=== PATIENT | female | born 1985 | race Caucasian/White ===

== ENCOUNTER → 2019-07-26 12:38 | Outpatient (BNVA) | payer MEDICAID, SELFPAY | PROVIDERS: Visit Provider Emergency Medicine | DX: J30.2 Other seasonal allergic rhinitis (principal); H69.80 Other specified disorders of Eustachian tube, unspecified ear; J02.9 Acute pharyngitis, unspecified | CPT/HCPCS: 87880 ==

== ENCOUNTER → 2020-02-09 14:17 | Outpatient (BNVA) | payer MEDICAID, SELFPAY | PROVIDERS: Visit Provider Nurse Practitioner Family | DX: R39.9 Unspecified symptoms and signs involving the genitourinary system (principal); N39.0 Urinary tract infection, site not specified; J30.2 Other seasonal allergic rhinitis; H69.80 Other specified disorders of Eustachian tube, unspecified ear; Z32.00 Encounter for pregnancy test, result unknown | CPT/HCPCS: 81000; 81025; 87086 ==

== ENCOUNTER → 2020-02-22 11:53 | Outpatient (BNVA) | payer MEDICAID, SELFPAY | PROVIDERS: Visit Provider Nurse Practitioner Family | DX: R39.9 Unspecified symptoms and signs involving the genitourinary system (principal); R10.9 Unspecified abdominal pain; R10.11 Right upper quadrant pain | CPT/HCPCS: 81000 ==

== ENCOUNTER 2020-03-22 10:18 | Outpatient (CLI) | payer MEDICAID, SELFPAY ==
--- NOTE | 2020-03-22 10:15 | US_ITS ---
WS: [id number] Complete ABDOMINAL ULTRASOUND HISTORY: R10.9 - Unspecified abdominal pain COMPARISON: None available. Liver: 16.1 cm in length. Liver is normal size and echogenicity with no mass or intrahepatic dilatati on. Gallbladder: Normally distended with no gallstones, wall thickening or pericholecystic fluid. Gallbladder wall thickness: 0.2 cm. Pancreas: Normal size and echogenicity. CBD: 0.3 cm. Right kidney: 10.5 cm x 3.7 cm x 4.6 cm. No mass, cortical thickening or hydronephrosis. Echogenic f ocus lower pole may be a small angiomyolipoma or cortical calcification. Nonspecific. Left kidney: 10.7 cm x 5.2 cm x 4.3 cm. No mass, cortical thickening or hydronephrosis. Spleen: Normal size and echogenicity. Abdominal aorta and IVC are within normal limits. No ascites. US/US abdomen complete* [id number] IMPRESSION: Normal complete abdomen ultrasound.
== END 2020-03-22 10:19 | disposition home or self-care (01) ==
PROVIDERS: PCP Nurse Practitioner Family; Visit Provider Nurse Practitioner Family
DX: R10.9 Unspecified abdominal pain (principal)
CPT/HCPCS: 76700

== ENCOUNTER 2021-11-10 20:43 | Emergency (ER) | payer MEDICAID, SELFPAY ==
[2021-11-10 20:50] VITALS: BP 145/88; PULSE 99; RESP 18; TEMP 36.9; O2SAT 98; BMI 23.8
--- NOTE | 2021-11-10 20:51 | XRR_ITS ---
PROCEDURE INFORMATION: Exam: XR Chest Exam date and time: 11/10/2021 9:41 PM Age: 36 years old Clinical indication: Dyspnea and shortness of breath; Patient HX: C/O worsening SOB and dyspnea for last few days. TECHNIQUE: Imaging protocol: Radiologic exam of the chest. Views: 1 view. COMPARISON: No relevant prior studies available. FINDINGS: Lungs: No consolidation. Pleural spaces: Unremarkable. No pleural effusion. No pneumothorax. Heart/Mediastinum: No cardiomegaly. Bones/joints: No acute findings. XR/XR chest 1V portable [id number] IMPRESSION: No acute findings.
--- NOTE | 2021-11-10 20:51 | ECG_ITS ---
[facility] Test Date: 2021-11-10 Pat Name: Jaylyn Reyes Department: Room: Gender: Female Dock Coordinator: : 1985 Requested By: Mookie Silvestre Order Number: [id number] Mcmanus MD: Maryan Aj M.D. Measurements Intervals [place] Rate: 73 P: 74 AL: 144 QRS: 69 QRSD: 93 T: 62 QT: 372 QTc: 412 Interpretive Statements SINUS RHYTHM No previous ECG available for comparison Electronically Signed On 11-11-2021 11:06:02 CDT by Maryan Aj M.D. [id number]
--- NOTE | 2021-11-10 21:10 | ED_ITS ---
HPI - SOB/Dyspnea General: Chief Complaint: Shortness of Breath/Dyspnea Stated Complaint: sob, pain in mid back/ribs Time Seen by Provider: 11/10/21 20:50 History of Present Illness: HPI Narrative: 36-year-old female comes in today for complaints of shortness of breath. On exam patient makes exasperated respirations with speech. Patient appears nontoxic. Patient appears in no pain. Patient does report some chest discomfort. Patient had been placed on some propanolol about 10 days ago which states that the symptoms started after the start of the medication. Associated symptoms: Reports chest pain; Deny fever(s) Review of Systems General: Reports: 10 or more systems reviewed and unremarkable except in HPI and below Const: Denies: fever(s) Card: Reports: chest pain Resp: Reports: dyspnea Skin/Breast: Denies: rash PFS ED PFSH: Medical History (Updated 11/10/21 @ 22:41 by MARICRUZ PeraltaP) Eustachian tube dysfunction Psychiatric care Seasonal allergies Social History (Reviewed 02/22/20 @ 11:53 by Jody Bingham [facility]) Smoking and tobacco status: former smoker Alcohol intake: former Female Reproductive History: Date of last menstrual period: 10/29/21 Spontaneous abortions: No Physical Exam Const: COMMON NORMALS: alert HENMT: COMMON NORMALS: normocephalic HEAD & SCALP: normocephalic Neck/C-Spine: COMMON NORMALS: full ROM Resp: COMMON NORMALS: normal respiratory effort and clear to auscultation bilaterally AUSCULTATION: clear to auscultation bilaterally Cardio: COMMON NORMALS: regular rate and regular rhythm RATE: regular rate RHYTHM: regular rhythm GI: COMMON NORMALS: Soft to palpation and non-tender PALPATION: Yes Soft to palpation Back/Pelvis: COMMON NORMALS: thoracic and lumbar spine normal to inspection Extremity: COMMON NORMALS: normal to inspection Neuro: SENSORIUM/ORIENTATION: Yes alert Skin: COMMON NORMALS: turgor normal GENERAL SKIN EXAM: turgor normal Course Vital Signs: Vital signs: Vital Signs Temperature 98.5 F 11/10/21 20:50 Pulse Rate 99 11/10/21 20:50 Respiratory Rate 18 11/10/21 20:50 Blood Pressure 145/88 11/10/21 20:50 Pulse Oximetry 98 11/10/21 20:50 Oxygen Delivery Me thod 11/10/21 20:50 MDM - SOB/Dyspnea Medical Decision Making 36-year-old female comes in today with complaints of shortness of breath. On exam patient appears nontoxic. Patient appears in no acute distress. Patient has occasional deep inspirations while speaking. On exam lungs are clear to auscultation. Skin is warm and dry. Vital signs are normal. Differential diagnosis includes anxiety, PE, pneumonia, electrolyte imbalance, anemia. CBC had a hemoglobin of 10.9, potassium was 3.1, troponin was less than 6, D-dimer was less than 0.27. I think the patient might have a little bit of shortness of breath due to her anemia. Patient also has some mild hypokalemia which may be causing some irregularity in her heart rate. Patient does not seem to have any serious illness at this time. Recommend follow-up with primary care in 1 week for recheck on patient's CBC and potassium. Discussed her medication use and which medicines may actually affect her potassium and absorption which includes her omeprazole 40 mg daily. Patient reported understanding of care plan need for follow-up or return to the ER. Lab Data : 11/10/21 21:45 11/10/21 21:45 Labs/Radiology: Laboratory Results WBC 11.1 10^3/uL (4.0-10.0) H 11/10/21 21:45 RBC 3.49 10^6/uL (4.1-5.3) L 11/10/21 21:45 Hgb 10.9 g/dL (11.5-15.3) L 11/10/21 21:45 Hct 31.7 % (37.0-47.0) L 11/10/21 21:45 MCV 90.8 fl (81-99) 11/10/21 21:45 MCH 31.2 pg (28.0-34.0) 11/10/21 21:45 MCHC 34.4 g/dL (30.0-36.0) 11/10/21 21:45 RDW 12.2 % (12.1-15.1) 11/10/21 21:45 Plt Count 307 10^3/cmm (130-400) 11/10/21 21:45 MPV 10.4 fL (7.4-10.4) 11/10/21 21:45 Neut % (Auto) 55.2 % 11/10/21 21:45 Lymph % (Auto) 38.6 % 11/10/21 21:45 [place] % (Auto) 4.6 % 11/10/21 21:45 Eos % (Auto) 0.7 % 11/10/21 21:45 Baso % (Auto) 0.6 % 11/10/21 21:45 Neut # (Auto) 6.14 10^3/uL (1.8-7.7) 11/10/21 21:45 Lymph # (Auto) 4.3 10^3/uL (0.8-4.8) 11/10/21 21:45 [place] # (Auto) 0.5 10^3/uL (0.2-0.9) 11/10/21 21:45 Eos # (Auto) 0.1 10^3/uL (0.0-0.8) 11/10/21 21:45 Baso # (Auto) 0.1 10^3/uL (0.0-0.1) 11/10/21 21:45 Nucleated RBC % (auto) 0 % 11/10/21 21:45 Nucleated RBCs # 0.0 /100WBC 11/10/21 21:45 D-Dimer <= 0.27 ug/mIFEU (0-0.59) 11/10/21 21:45 Sodium 137 mmol/L (136-145) 11/10/21 21:45 Potassium 3.1 mmol/L (3.5-5.1) L 11/10/21 21:45 Chloride 106 mmol/L (98-107) 11/10/21 21:45 Carbon Dioxide 19 mmol/L (22-29) L 11/10/21 21:45 Anion Gap 15.1 (5-19) 11/10/21 21:45 BUN 9 mg/dL (6-20) 11/10/21 21:45 Creatinine 0.7 mg/dL (0.5-0.9) 11/10/21 21:45 GFR Calculation 95.2 mL/min (90-130) 11/10/21 21:45 Glucose 97 mg/dL (65-115) 11/10/21 21:45 Calculated Osmolality 283 mOsm/kg (285-295) L 11/10/21 21:45 Calcium 8.5 mg/dL (8.5-10.5) 11/10/21 21:45 Total Bilirubin 0.5 mg/dL (0.15-1.2) 11/10/21 21:45 AST 13 U/L (0-32) 11/10/21 21:45 ALT 11 U/L (0-33) 11/10/21 21:45 Alkaline Phosphatase 56 U/L (35-105) 11/10/21 21:45 Troponin T Gen 5 ng/L 6 ng/L (0-10) 11/10/21 21:45 Total Protein 6.7 g/dL (6.6-8.7) 11/10/21 21:45 Albumin 3.8 g/dL (3.5-5.2) 11/10/21 21:45 Globulin 2.9 g/dL (1.3-4.6) 11/10/21 21:45 Discharge Plan Discharge Patient Disposition: Home Clinical Impression: Dyspnea on exertion, Hypokalemia Anemia Qualifiers: Anemia type: unspecified type Qualified Code(s): D64.9 - Anemia, unspecified Condition: Stable Prescriptions: No Action norgestimate-ethinyl estradiol [Sprintec (28)] 0.25-35 mg-mcg tablet 1 tab PO DAILY omeprazole 20 mg capsule,delayed release(DR/EC) 40 mg PO DAILY Acidophilus Probiotic Complex 250 million cell capsule PO DAILY venlafaxine 75 mg capsule,extended release 24hr 75 mg PO DAILY oxybutynin chloride 15 mg tablet extended release 24hr 15 mg PO DAILY hydroxyzine HCl 10 mg tablet 10 mg PO BID PRN (Reason: anxiety or sleep) Qty: 60 3RF Discharge Orders: Discharge ED (Routine); Ordered 11/10/21 Ordered By: Mookie Segura Discharge Diet: Usual diet Discharge Activity: Increase activity as tolerated Patient Instructions: Potassium Content of Foods List (ED), Iron Rich Diet (ED) Activity Restrictions/Additional Instructions: Healthy diet and activity. Drink plenty of water. Continue with routine medications. Follow-up with primary care for further instruction. Return to ER for new concerns. Coding Level of Care Code ED Foundation Stage Teacher for Brunilda Fwd Exam Comprehensive
[2021-11-10] MEDS: LORazepam 0.5 mg Tablet PO (21:42)
[2021-11-10 21:54] LABS: Basophils # 0.1 10^3/uL (0.0-0.1); Basophils % 0.6 %; Eosinophils # 0.1 10^3/uL (0.0-0.8); Eosinophils % 0.7 %; Hematocrit 31.7 % (37.0-47.0); Hemoglobin 10.9 g/dL (11.5-15.3); Lymphocytes # 4.3 10^3/uL (0.8-4.8); Lymphocytes % 38.6 %; Mean Corpuscular HGB Conc 34.4 g/dL (30.0-36.0); Mean Corpuscular Hemoglobin 31.2 pg (28.0-34.0); Mean Corpuscular Volume 90.8 fl (81-99); Mean Platelet Volume 10.4 fL (7.4-10.4); Monocytes # 0.5 10^3/uL (0.2-0.9); Monocytes % 4.6 %; Neutrophils # 6.14 10^3/uL (1.8-7.7); Neutrophils % 55.2 %; Nucleated Red Blood Cells % 0 %; Platelet Count 307 10^3/cmm (130-400); Red Blood Count 3.49 10^6/uL (4.1-5.3); Red Cell Distribution Width 12.2 % (12.1-15.1); White Blood Count 11.1 10^3/uL (4.0-10.0)
[2021-11-10 22:07] LABS: D Dimer <= 0.27 ug/mIFEU (0-0.59)
[2021-11-10 22:15] LABS: Alanine Aminotransferase 11 U/L (0-33); Albumin Level 3.8 g/dL (3.5-5.2); Alkaline Phosphatase 56 U/L (35-105); Anion Gap 15.1 (5-19); Aspartate Amino Transferase 13 U/L (0-32); Blood Urea Nitrogen 9 mg/dL (6-20); Calcium 8.5 mg/dL (8.5-10.5); Carbon Dioxide 19 mmol/L (22-29); Chloride 106 mmol/L (98-107); Globulin 2.9 g/dL (1.3-4.6); Glomerular Filtration Rate 95.2 mL/min (90-130); Glucose 97 mg/dL (65-115); Osmolality Calculated 283 mOsm/kg (285-295); Potassium 3.1 mmol/L (3.5-5.1); Sodium 137 mmol/L (136-145); Total Bilirubin 0.5 mg/dL (0.15-1.2); Total Protein 6.7 g/dL (6.6-8.7); Troponin T (5th) Once 6 ng/L (0-10)
[2021-11-10] MEDS: potassium chloride ER 20 mEq Tablet 40 MEQ PO (22:40)
[2021-11-10 23:12] VITALS: BP 141/82; PULSE 72; RESP 19; TEMP 37.1; O2SAT 98
== END 2021-11-10 23:14 | disposition home or self-care (01) ==
PROVIDERS: Emergency Provider Nurse Practitioner Family
DX: R06.00 Dyspnea, unspecified (principal); E87.6 Hypokalemia; D64.9 Anemia, unspecified; Z87.891 Personal history of nicotine dependence
CPT/HCPCS: 71045; 80053; 84484; 85025; 85378; 93005; 99285

== ENCOUNTER → 2022-04-23 17:14 | Outpatient (BNVA) | payer MEDICAID, SELFPAY | PROVIDERS: Visit Provider Psychiatry & Neurology Psychiatry | DX: Z79.899 Other long term (current) drug therapy (principal) | CPT/HCPCS: 80053; 80061; 83036; 84443; 85025 ==

== ENCOUNTER → 2022-10-19 10:30 | Outpatient (BNVA) | payer MEDICAID, SELFPAY | PROVIDERS: Visit Provider Emergency Medicine | DX: J02.9 Acute pharyngitis, unspecified (principal) | CPT/HCPCS: 87071; 87880 ==

== ENCOUNTER 2024-06-05 17:31 | Inpatient (IN) | payer SELFPAY ==
[2024-06-05 17:36] VITALS: BP 112/73; PULSE 106; RESP 16; TEMP 36.8; O2SAT 99; BMI 21.6
--- NOTE | 2024-06-05 17:40 | ECG_ITS ---
[facility] Test Date: 2024-06-05 Pat Name: Jaylyn Lo Department: Room: Gender: Female Loader: : 1985 Requested By: Marly Jane Order Number: [id number] Yonathan MD: Sonya Dozier M.D. Measurements Intervals [place] Rate: 131 P: 78 CT: 116 QRS: 78 QRSD: 82 T: 40 QT: 333 QTc: 493 Interpretive Statements SINUS TACHYCARDIA NONSPECIFIC ST & T-WAVE ABNORMALITY ABNORMAL RHYTHM ECG Compared to ECG 11/10/2021 21:12:32 Sinus tachycardia is now present Electronically Signed On 06-06-2024 13:13:08 CDT by Sonya Dozier M.D. [email or web address] [id number]
[2024-06-05 18:58] LABS: Basophils % 0.1 %; Lymphocytes # 1.1 10^3/uL (0.8-4.8); Lymphocytes % 8.1 %; Mean Corpuscular Hemoglobin 31.7 pg (27-33); Mean Corpuscular Volume 96.1 fl (85-98); Mean Platelet Volume 10.3 fL (7.4-10.4); Monocytes # 0.6 10^3/uL (0.2-0.9); Monocytes % 4.5 %; Neutrophils # 11.79 10^3/uL (1.8-7.7); Neutrophils % 86.6 %; Nucleated Red Blood Cells % 0 %; Platelet Count 376 10^3/cmm (157-399); Red Blood Count 4.89 10^6/uL (3.85-5.65); Red Cell Distribution Width 12.3 % (12.1-15.1); White Blood Count 13.62 10^3/uL (3.29-11.43)
[2024-06-05 19:16] LABS: Alanine Aminotransferase 12 U/L (0-33); Albumin Level 5.4 g/dL (3.5-5.2); Alkaline Phosphatase 110 U/L (35-105); Anion Gap 35.5 (5-19); Aspartate Amino Transferase 15 U/L (0-32); Blood Urea Nitrogen 29 mg/dL (6-20); Calcium 10.1 mg/dL (8.5-10.5); Carbon Dioxide 11 mmol/L (22-29); Chloride 100 mmol/L (98-107); Creatinine Clr Calc Pharmacy 52.0124; Globulin 3.9 g/dL (1.3-4.6); Glomerular Filtration Rate 50.3 mL/min (90-130); Glucose 125 mg/dL (65-115); Lipase 67 U/L (13-60); Osmolality Calculated 301 mOsm/kg (285-295); Potassium 4.5 mmol/L (3.5-5.1); Sodium 142 mmol/L (136-145); Total Bilirubin 0.5 mg/dL (0.15-1.2); Total Protein 9.3 g/dL (6.6-8.7)
--- NOTE | 2024-06-05 19:21 | CTR_ITS ---
PROCEDURE INFORMATION: Exam: CT Abdomen And Pelvis With Contrast Exam date and time: 06/05/2024 7:41 PM Age: 39 years old Clinical indication: Nausea and vomiting; Abdominal pain; Generalized; Prior surgery; Surgery date: 6+ months; Surgery type: Ovarian cystectomy; Diffuse abd pain with n/v x 2 days. TECHNIQUE: Imaging protocol: Computed tomography of the abdomen and pelvis with contrast. Radiation optimization: All CT scans at this facility use at least one of these dose optimization techniques: automated exposure control; mA and/or kV adjustment per patient size (includes targeted exams where dose is matched to clinical indication); or iterative reconstruction. Contrast material: OMNI 350; Contrast volume: 80 ml; Contrast route: INTRAVENOUS (IV); COMPARISON: US abdomen complete* [id number] 03/22/2020 10:20 AM RADIATION DOSE METRICS: Total DLP (mGy-cm): 309.41 FINDINGS: Lungs: Visualized lung bases are clear. Liver: Unremarkable. Gallbladder and biliary ducts: No radiopaque stones. No significant biliary ductal dilatation. Pancreas: Unremarkable. Spleen: Unremarkable. Adrenal glands: Unremarkable. Kidneys and ureters: There is a 2 mm stone in the left kidney. No significant hydronephrosis. No right-sided renal or ureteral calculi are detected. Stomach and bowel: There is a mildly prominent short segment 3.5 cm length small bowel loop in the central abdomen with an air-fluid level measuring 2.3 cm in caliber. The small bowel proximal and distal to this region is decompressed. This is likely transient or could represent focal ileus. Remaining small and large bowel loops are unremarkable. Appendix: The appendix is normal in caliber. No evidence of acute appendicitis. Intraperitoneal space: No significant free fluid. No free air. Vasculature: The abdominal aorta is normal in caliber. No abdominal aortic aneurysm. Lymph nodes: Unremarkable. No enlarged lymph nodes. Urinary bladder: Unremarkable as visualized. Reproductive: There is a 2 cm area of mild hyperdensity in the posterior wall of the lower uterine segment, incompletely evaluated on this study. This could be related to a fibroid. Ovaries are unremarkable. Bones/joints: Intact. No acute fracture. Soft tissues: Unremarkable. CT/CT abdomen pelvis w con* [id number] IMPRESSION: 1. Tiny 2 mm nonobstructing left renal stone. 2. Short segment mildly prominent fluid-filled small bowel loop in the central abdomen which may be transient or could represent mild focal ileus. Remaining small and large bowel loops are normal in caliber and unremarkable. 3. No evidence for acute appendicitis.
[2024-06-05 19:38] LABS: Bilirubin Urine Negative (Negative); Blood Urine 1+ (Negative); Glucose Urine UA Negative (Normal); Ketones Urine 3+ (Negative); Leukocyte Esterase Urine Negative (Negative); Nitrate Urine Negative (Negative); Protein Urine 3+ (Negative); Specific Gravity, Urine 1.023 (1.005-1.030); Urine Appearance Cloudy (CLEAR); Urine Color Yellow (Yellow); pH Urine 5.5 (5-7)
--- NOTE | 2024-06-05 19:38 | W.ED.NAVMDI ---
HPI - Nausea/Vomiting/Diarrhea General: Chief complaint: Nausea/Vomiting/Diarrhea Stated complaint: n/v couple days Time Seen by Provider: 06/05/24 18:00 History of Present Illness: 39-year-old female with a history of ADHD and seasonal allergies who presents the emergency room with abdominal pain, nausea and vomiting. This has been going on for about 36 hours now. Complains of pain from her umbilicus going up into her epigastric area. She has had some dizziness, migraine symptoms and palpitations. Also with kidney pain today . Related Data Home Medications ?Medication ?Instructions ?Recorded ?Confirmed norgestimate 0.25 mg-ethinyl 1 tab PO DAILY 02/09/20 10/19/22 estradiol 35 mcg tablet (Sprintec (28)) Lactobacill cap PO DAILY 10/30/21 10/19/22 acidophilus-L.helvetic-B.bifidum 250 million cell capsule (Acidophilus Probiotic Complex) multivitamin 1 tab PO DAILY 04/23/22 10/19/22 hydroxyzine HCl 25 mg tablet 25 mg PO DAILY 10/10/22 10/19/22 Previous Rx's ?Medication ?Instructions ?Recorded amoxicillin 500 mg tablet 500 mg PO BID 10 days #20 tabs 10/19/22 dexamethasone 4 mg tablet 8 mg (2 x 4 mg) PO DAILY 1 day #2 10/19/22 tabs Allergies Allergy/AdvReac Type Severity Reaction Status Date / Time No Known Allergies Allergy Verified 06/05/24 17:41 Review of Systems Narrative: Constitutional symptoms: Negative except as documented in HPI. Skin symptoms: Negative except as documented in HPI. Eye symptoms: Negative except as documented in HPI. ENMT symptoms: Negative except as documented in HPI. Respiratory symptoms: Negative except as documented in HPI. Cardiovascular symptoms: Negative except as documented in HPI. Gastrointestinal symptoms: Negative except as documented in HPI. Genitourinary symptoms: Negative except as documented in HPI. Musculoskeletal symptoms: Negative except as documented in HPI. Neurologic symptoms: Negative except as documented in HPI. Psychiatric symptoms: Negative except as documented in HPI. Endocrine symptoms: Negative except as documented in HPI. [facility] ED PFSH: Medical History (Updated 06/05/24 @ 20:39 by Marly Bustillo MD) ADHD Eustachian tube dysfunction Seasonal allergies Social History Smoking and tobacco/nicotine status: former use of tobacco/nicotine Alcohol intake: former Female Reproductive History: Spontaneous abortions: No Physical Exam Narrative: EXAM NARRATIVE: General: Alert, no acute distress. Skin: Warm, dry. Head: Normocephalic, atraumatic. Neck: Supple, trachea midline. Eye: Extraocular movements are intact. Ears, nose, mouth and throat: mucosa moist. Cardiovascular: Regular, Normal peripheral perfusion. Respiratory: Lungs are clear to auscultation, respirations are non-labored, breath sounds are equal, Symmetrical chest wall expansion. Gastrointestinal: Soft, epigastric and upper abdominal tenderness, Non distended Musculoskeletal: Normal ROM, no deformity. Neurological: Alert and oriented, No focal neurological deficit observed. Psychiatric: Cooperative, appropriate mood & affect. Course Vital Signs: Vital signs: Vital Signs Temperature 98.2 F 06/05/24 17:36 Pulse Rate 102 H 06/05/24 20:01 Respiratory Rate 16 06/05/24 17:36 Blood Pressure 128/84 06/05/24 20:01 Pulse Oximetry 95 06/05/24 20:01 Oxygen Delivery Me thod Room Air 06/05/24 20:01 MDM - Nausea/Vomiting/Diarrhea Medical Decision Making Medical decision making: Differential diagnosis for this patient with nausea and vomiting including but not limited to and based on the above HPI, review of systems and physical exam: Urinary tract infection. Appendicitis. Cholecystitis. Colitis. small bowel obstruction. crohn's flare. pancreatitis. gastritis. peptic ulcer. cyclic vomiting. Viral illness. Influenza. COVID. Orders placed to evaluate differential diagnosis based on the above differential, HPI and physical exam Lab Review: Laboratory results were reviewed and interpreted by myself the emergency room physician. Mild leukocytosis. No anemia. Mild renal insufficiency with a BUN/creatinine of 29 and 1.2. Her bicarb is quite low at 11. Negative for UTI. Serum ketones are positive. CT of the abdomen pelvis with contrast: Nonobstructing renal stone. Some mild fluid-filled small bowel loops that could be an early ileus or just transient. The rest of the bowel looks normal. No evidence for appendicitis. This was reviewed and interpreted by myself the emergency room physician. I also reviewed the radiology report. I reviewed the patient's medical record. Reexamination: Patient says she still feels somewhat nauseous. Still with some abdominal pain. Still feeling very weak. Still with a headache. She does not feel like she can go home. I agree that she has a bit of a metabolic acidosis and some acute renal insufficiency so admission for further fluids and antibiotics seems appropriate. Consultation: I spoke with Dr. Vallejo who agrees to admission. Assessment and plan: Gastroenteritis Dehydration Acute renal insufficiency Metabolic acidosis ?2 L normal saline bolus, IV Zofran, IV Dilaudid. Some relief but still quite nauseous. ?Migraine cocktail. IV Reglan Benadryl Norflex -I discussed the patient with the hospitalist on-call who is admitting the patient. - Discussed findings and plan with patient. Answered any questions. - All laboratory values were reviewed and interpreted personally by myself, the ER physician - All imaging was reviewed and interpreted personally by myself, the ER physician. - Evaluation and treatment of this problem were appropriate in the emergency setting Lab Data 06/05/24 18:48 06/05/24 18:48 Radiology Impressions Abdomen/Pelvis CT 06/05/24 19:21 IMPRESSION: 1. Tiny 2 mm nonobstructing left renal stone. 2. Short segment mildly prominent fluid-filled small bowel loop in the central abdomen which may be transient or could represent mild focal ileus. Remaining small and large bowel loops are normal in caliber and unremarkable. 3. No evidence for acute appendicitis. Laboratory Results WBC 13.62 10^3/uL (3.29-11.43) H 06/05/24 18:48 RBC 4.89 10^6/uL (3.85-5.65) 06/05/24 18:48 Hgb 15.50 g/dL (11.27-16.99) 06/05/24 18:48 Hct 47.0 % (36-47) 06/05/24 18:48 MCV 96.1 fl (85-98) 06/05/24 18:48 MCH 31.7 pg (27-33) 06/05/24 18:48 MCHC 33.0 g/dL (30-55) 06/05/24 18:48 RDW 12.3 % (12.1-15.1) 06/05/24 18:48 Plt Count 376 10^3/cmm (157-399) 06/05/24 18:48 MPV 10.3 fL (7.4-10.4) 06/05/24 18:48 Neut % (Auto) 86.6 % 06/05/24 18:48 Lymph % (Auto) 8.1 % 06/05/24 18:48 [place] % (Auto) 4.5 % 06/05/24 18:48 Eos % (Auto) 0.0 % 06/05/24 18:48 Baso % (Auto) 0.1 % 06/05/24 18:48 Neut # (Auto) 11.79 10^3/uL (1.8-7.7) H 06/05/24 18:48 Lymph # (Auto) 1.1 10^3/uL (0.8-4.8) 06/05/24 18:48 [place] # (Auto) 0.6 10^3/uL (0.2-0.9) 06/05/24 18:48 Eos # (Auto) 0.0 10^3/uL (0.0-0.8) 06/05/24 18:48 Baso # (Auto) 0.0 10^3/uL (0.0-0.1) 06/05/24 18:48 Nucleated RBC % (auto) 0 % 06/05/24 18:48 Nucleated RBCs # 0.0 /100WBC 06/05/24 18:48 Sodium 142 mmol/L (136-145) 06/05/24 18:48 Potassium 4.5 mmol/L (3.5-5.1) 06/05/24 18:48 Chloride 100 mmol/L (98-107) 06/05/24 18:48 Carbon Dioxide 11 mmol/L (22-29) L 06/05/24 18:48 Anion Gap 35.5 (5-19) H 06/05/24 18:48 BUN 29 mg/dL (6-20) H 06/05/24 18:48 Creatinine 1.2 mg/dL (0.5-0.9) H 06/05/24 18:48 GFR Calculation 50.3 mL/min (90-130) L 06/05/24 18:48 Glucose 125 mg/dL (65-115) H 06/05/24 18:48 Calculated Osmolality 301 mOsm/kg (285-295) H 06/05/24 18:48 Calcium 10.1 mg/dL (8.5-10.5) 06/05/24 18:48 Total Bilirubin 0.5 mg/dL (0.15-1.2) 06/05/24 18:48 AST 15 U/L (0-32) 06/05/24 18:48 ALT 12 U/L (0-33) 06/05/24 18:48 Alkaline Phosphatase 110 U/L (35-105) H 06/05/24 18:48 Total Protein 9.3 g/dL (6.6-8.7) H 06/05/24 18:48 Albumin 5.4 g/dL (3.5-5.2) H 06/05/24 18:48 Globulin 3.9 g/dL (1.3-4.6) 06/05/24 18:48 Lipase 67 U/L (13-60) H 06/05/24 18:48 HCG, Qual Negative (Negative) 06/05/24 18:48 Urine Color Yellow (Yellow) 06/05/24 18:45 Urine Appearance Cloudy (CLEAR) A 06/05/24 18:45 Urine pH 5.5 (5-7) 06/05/24 18:45 Ur Specific [place] 1.023 (1.005-1.030) 06/05/24 18:45 Urine Protein 3+ (Negative) A 06/05/24 18:45 Urine Glucose (UA) Negative (Normal) 06/05/24 18:45 Urine Ketones 3+ (Negative) H 06/05/24 18:45 Urine Blood 1+ (Negative) A 06/05/24 18:45 Urine Nitrate Negative (Negative) 06/05/24 18:45 Urine Bilirubin Negative (Negative) 06/05/24 18:45 Urine Urobilinogen 1.0 mg/dL (Negative) 06/05/24 18:45 Ur Leukocyte Esterase Negative (Negative) 06/05/24 18:45 Urine RBC 0-2 /hpf (0-2) 06/05/24 18:45 Urine WBC 21-50 /hpf (0-5) H 06/05/24 18:45 Ur Squamous Epith Cells 11-20 /hpf (0-5) H 06/05/24 18:45 Amorphous Sediment Not Reportable 06/05/24 18:45 Urine Bacteria None seen /hpf (NONE) 06/05/24 18:45 Hyaline Casts 44.25 /lpf 06/05/24 18:45 Urine Opiates Screen Negative ng/mL (Negative) 06/05/24 18:45 Ur Barbiturates Screen Negative ng/mL (Negative) 06/05/24 18:45 Ur Phencyclidine Scrn Negative ng/mL (Negative) 06/05/24 18:45 Ur Amphetamines Screen Negative ng/mL (Negative) 06/05/24 18:45 U Benzodiazepines Scrn Negative ng/mL (Negative) 06/05/24 18:45 Urine Cocaine Screen Negative ng/mL (Negative) 06/05/24 18:45 U Marijuana (THC) Screen Positive ng/mL (Negative) H 06/05/24 18:45 Serum Ketones Positive (Negative) H 06/05/24 18:48 All radiology interpretation(s) finalized by discharge Discharge Plan Discharge Patient Disposition: Placed in Observation Clinical Impression: Gastroenteritis, Dehydration Coding Level of Care Code ED Educational Technology Coordinator for Brunilda George
[2024-06-05] MEDS: sodium chloride 0.9% 1,000 ML 999 ML IV ×2 (19:42→22:14)
[2024-06-05] MEDS: ondansetron 2 mg/ML SDV 2 mL 8 MG IVP ×2 (19:42→22:13)
[2024-06-05] MEDS: HYDROmorphone 0.5 MG/0.5 ML INJ 1 MG IVP (19:42)
[2024-06-05 19:43] LABS: Add Urine Microscopic? YES; Bacteria Urine None Seen /hpf; Hyaline Casts Urine 44.25 /lpf; RBC Urine 0-2 /hpf (0-2); Universal Test for UA Present (0); WBC Urine 21-50 /hpf (0-5)
[2024-06-05] MEDS: iohexol 350 mg/mL 500 mL Btl (per mL) IV (19:43)
[2024-06-05 19:48] LABS: HCG, Serum Qual Negative (Negative)
[2024-06-05 19:50] LABS: Ketone (Acetest) Serum Positive (Negative)
[2024-06-05 19:57] LABS: Amphetamines Screen Urine Negative (Negative); Barbiturates Screen Urine Negative (Negative); Benzodiazepines Screen Urine Negative (Negative); Cocaine Screen Urine Negative (Negative); Opiate Screen Urine Negative (Negative); PCP Screen Urine Negative (Negative); THC Screen Urine Positive (Negative)
[2024-06-05 19:59] LABS: Add Urine Culture? No
[2024-06-05 20:01] VITALS: BP 128/84; PULSE 102; O2SAT 95
[2024-06-05 22:02] LABS: Lactic Sepsis W/Reflex 1.8 mmol/L (0.5-2.2)
[2024-06-05] MEDS: diphenhydrAMINE 50 mg/mL SDV 1mL IVP (22:13)
[2024-06-05] MEDS: famotidine 20 mg/2 mL INJ 40 MG IVP (22:13)
[2024-06-05] MEDS: metoclopramide 5 mg/mL SDV 2 mL 10 MG IVP (22:13)
[2024-06-05] MEDS: ketorolac 30 mg/mL INJ IVP (22:13)
[2024-06-05] MEDS: orphenadrine 30 mg/mL Inj 2 mL 60 MG IVP (22:14)
[2024-06-05] MEDS: HYDROcodone-acetaminophen 5-325 mg Tablet 2 TAB PO (22:14)
--- NOTE | 2024-06-05 22:14 | P.HP_ITS ---
Providers/Chief Complaint 2 Chief Complaint: n/v couple days History of Present Illness Jaylyn Lo is a 39 year old female G3, P3, 5 months , history of gestational diabetes, no history of hypertension, recent history of marijuana use, who presents [facility] for intractable nausea, vomiting over the last few days. Currently patient is alert oriented x 3, following all commands, she denies any fevers, no chills, no lightheadedness, dizziness, does report a headache, does report flank pain, does report dizziness, no blurry vision, denies a history of hypertension, no history of preeclampsia or eclampsia, no history of diabetes but did have gestational diabetes, she is breast-feeding, no sick contacts, recent travel, Review of Systems 2 Const: Reports: fatigue and malaise; Denies: fever(s) or chills Card: Denies: chest pain Resp: Denies: dyspnea GI: Reports: abdominal pain, nausea and vomiting; Denies: diarrhea : Reports: flank pain Musc: Denies: neck pain or back pain Neuro: Reports: dizziness; Denies: headache(s) Endo: Denies: polyuria or polydipsia Medications/Allergies Home Medications ?Medication ?Instructions ?Recorded ?Confirmed ?Last Taken ?Type norgestimate 0.25 mg-ethinyl 1 tab PO DAILY 02/09/20 0 10/19/22 Unknown History estradiol 35 mcg tablet (Sprintec (28)) Lactobacill cap PO DAILY 10/30/21 Unknown History acidophilus-L.helvetic-B.bifidum 250 million cell capsule (Acidophilus Probiotic Complex) multivitamin 1 tab PO DAILY 04/23/2203/12 Unknown History hydroxyzine HCl 25 mg tablet 25 mg PO DAILY 10/10/22 0 10/19/22 Unknown History amoxicillin 500 mg tablet 500 mg PO BID 10 days #20 ta bs 10/19/22 10/19/22 Unknown Rx dexamethasone 4 mg tablet 8 mg (2 x 4 mg) PO DAILY 1 d ay #2 10/19/22 10/19/22 Unknown Rx tabs Allergies Allergy/AdvReac Type Severity Reaction Status Date / Time No Known Allergies Allergy Verified 06/05/24 17:41 PFSH Acute 2 PFSH: Medical History (Updated 06/05/24 @ 22:25 by Markell Vallejo MD) ADHD Eustachian tube dysfunction Seasonal allergies Family History (Updated 06/05/24 @ 22:21 by Markell Vallejo MD) Other Diabetes mellitus, type 2 Social History Smoking and tobacco/nicotine status: former use of tobacco/nicotine Alcohol intake: former Female Reproductive History: Spontaneous abortions: No Vitals/I&O/Wt Last Vital Signs Temp 98.2 F 06/05/24 17:36 Pulse 102 H 06/05/24 20:01 Resp 16 06/05/24 17:36 BP 128/84 06/05/24 20:01 Pulse Ox 95 06/05/24 20:01 O2 Del Method Room Air 06/05/24 20:01 Weight last 48 hrs Weight 54.431 kg Physical Exam 2 Const: COMMON NORMALS: no acute distress and patient oriented x3 HENMT: COMMON NORMALS: normocephalic HEAD & SCALP: normocephalic Neck/C-Spine: COMMON NORMALS: no JVD Resp: COMMON NORMALS: normal respiratory effort, No retractions, No use of accessory muscles and clear to auscultation bilaterally AUSCULTATION: clear to auscultation bilaterally Cardio: COMMON NORMALS: regular rate, regular rhythm, S1 normal heart sound present and S2 normal heart sound present RATE: regular rate RHYTHM: r egular rhythm HEART SOUNDS: S1 normal heart sound present and S2 normal heart sound present GI: COMMON NORMALS: Normal to inspection, nondistended, normoactive bowel sounds present, Soft to palpation and non-tender Extremity: COMMON NORMALS: no pedal edema Neuro: COMMON NORMALS: patient oriented x3, CN's II-XII intact bilaterally and moves all extremities Psych: COMMON NORMALS: mental status grossly normal Data 06/05/24 18:48 06/05/24 18:48 Micro: Microbiology 06/05/24 22:02 Blood Culture - Preliminary Blood SPECIMEN COLLECTED 06/05/24 21:58 Blood Culture - Preliminary Blood SPECIMEN COLLECTED A&P Assessment and plan (1) Increased anion gap metabolic acidosis: (2) Cannabis hyperemesis syndrome concurrent with and due to cannabis abuse: (3) UTI (urinary tract infection): (4) DEENA (acute kidney injury): Plan Increased anion gap metabolic acidosis, with DEENA -Intractable nausea vomiting - Etiology? -Will start her on a bicarb drip -Zofran, Reglan for intractable nausea vomiting - Component of severe dehydration - Possible marijuana hyperemesis syndrome - Other thoughts could be diabetic ketoacidosis, pH 7.2, ketones positive, blood sugar 120 does have a history of gestational diabetes A1c currently pending - If she is in diabetic ketoacidosis, might be euglycemic diabetic ketoacidosis with blood sugar 120 will consider insulin drip and moving to ICU - Other thoughts could be preeclampsia however she does not have all the criteria, does not have blood pressure greater than 140/90, does have headache, does have protein present in the urine, will order urine protein, no seizures - Does have a UTI, start Rocephin - Discussed with patient that she is breast-feeding, given medications that she has received, including narcotics would be best to pump and dump breastmilk, and do formula for now, further recommendations will be based on what she receives here in the hospital - Elevated TSH, - SCDs for DVT prophylaxis - Protonix for GI prophylaxis - Full code PDMP PDMP Reviewed: Not Reviewed Attestations 2 Medical Necessity Statement*: Patient requires hospitalization, inpatient, greater than 2 midnights for increased anion gap metabolic acidosis, UTI, DEENA, Diagnoses Increased anion gap metabolic acidosis E87.29 Cannabis hyperemesis syndrome concurrent with and due to cannabis abuse F12.188 UTI (urinary tract infection) N39.0 DEENA (acute kidney injury) N17.9
[2024-06-05 22:19] LABS: Procalcitonin 0.13 ng/mL (0-0.5); Thyroid Stimulating Hormone 0.25 uIU/mL (0.27-4.20)
[2024-06-05 22:21] LABS: ABG PCO2 28.5 mmHg (35-45); ABG PH Result 7.21 (7.35-7.45); Alveolar-Arterial Oxygen Gradi 2.8 mmHg (5-10); Arterial Blood Gas Hematocrit 40.9 % (37-47); Base Excess ABG -14.9 mmol/L (-2.0-2.0); Blood Gas Allen Test Pos; Blood Gas Operator Identificat gerca; Blood Gas Sample Site Radial, left; Blood Gas Sample Type Arterial; Carboxyhemoglobin 0.8 %THgb (0.4-20.1); HCO3 ABG 11.5 mmol/L (22-26); HGB O2 Sat 94.8 % (95-100); Ionized Calcium Level - ABG 1.3 mmol/L (1.1-1.4); Methemoglobin 1.3 % (0.4-1.5); Oxygen Device ROOM AIR; Oxygen Saturation ABG 96.9; PO2 ABG 90.5 mmHg (80.0-100.0); Potassium Level - ABG 3.9 mmol/L (3.5-5.0); Total Hemoglobin 13.3 g/dL (12-16)
[2024-06-05 22:23] VITALS: BP 110/69; PULSE 98; O2SAT 99
[2024-06-05 22:31] LABS: C Reactive Protein 5.5 mg/L (0.0-4.9)
[2024-06-05 22:44] LABS: Estmated Average Glucose 100; Hemoglobin A1C 5.1 % (4.0-6.0)
[2024-06-05 22:58] VITALS: BP 104/68; PULSE 81; O2SAT 99
[2024-06-05 23:28] LABS: Creatine Phosphokinase 57 U/L (26-192); Free T4 Free Thyroxine 1.58 ng/dL (0.82-1.77); T3 Free 2.1 PG/ML (2.0-4.4)
[2024-06-05 23:41] VITALS: BMI 22.5
[2024-06-05 23:41] LABS: Influenza A NEGATIVE (Negative); Influenza B NEGATIVE (Negative); Respiratory Syncytial Virus Ce NEGATIVE (Negative); SARS-CoV-2 PCR NEGATIVE (Negative)
[2024-06-05 23:47] LABS: Creatinine Urine, Random 159 mg/dL (28-217); Urine Protein Random 150 mg/dL
[2024-06-05] MEDS: sodium bicarbonate 50 MEQ in sodium chloride 0.45% 1,000 ML 125 MEQ IV (23:53)
[2024-06-05] MEDS: cefTRIAXone 1,000 mg SDV 1000 MG IVP (23:53)
[2024-06-05] MEDS: pantoprazole 40 mg SDV IVP (23:53)
[2024-06-06] VITALS (10 sets, daily range): BP systolic 98–110; BP diastolic 61–66; PULSE 59–92; RESP 16–18; TEMP 36.7–36.9; O2SAT 96–100
[2024-06-06 00:05] LABS: Microalbum Creatinine Ratio Ur 503 mg/dL (0-20); Microalbumin Random Urine 80 ug/dL (0-20)
[2024-06-06 05:30] LABS: Basophils % 0.2 %; Hematocrit 34.7 % (36-47); Lymphocytes # 2.1 10^3/uL (0.8-4.8); Lymphocytes % 16.1 %; Mean Corpuscular HGB Conc 32.6 g/dL (30-55); Mean Corpuscular Hemoglobin 31.8 pg (27-33); Mean Corpuscular Volume 97.7 fl (85-98); Mean Platelet Volume 10.8 fL (7.4-10.4); Monocytes # 1.6 10^3/uL (0.2-0.9); Monocytes % 12.4 %; Neutrophils # 9.18 10^3/uL (1.8-7.7); Neutrophils % 70.9 %; Nucleated Red Blood Cells % 0 %; Platelet Count 234 10^3/cmm (157-399); Red Blood Count 3.55 10^6/uL (3.85-5.65); Red Cell Distribution Width 12.3 % (12.1-15.1); White Blood Count 12.95 10^3/uL (3.29-11.43)
[2024-06-06 06:06] LABS: Alanine Aminotransferase 8 U/L (0-33); Albumin Level 3.9 g/dL (3.5-5.2); Alkaline Phosphatase 76 U/L (35-105); Anion Gap 19.3 (5-19); Aspartate Amino Transferase 16 U/L (0-32); Blood Urea Nitrogen 23 mg/dL (6-20); Calcium 8.8 mg/dL (8.5-10.5); Carbon Dioxide 16 mmol/L (22-29); Chloride 110 mmol/L (98-107); Creatinine Clr Calc Pharmacy 70.5877; Globulin 2.6 g/dL (1.3-4.6); Glomerular Filtration Rate 70.1 mL/min (90-130); Glucose 92 mg/dL (65-115); Magnesium 2.1 mg/dL (1.7-2.3); Osmolality Calculated 295 mOsm/kg (285-295); Phosphorus 3.2 mg/dL (2.5-4.5); Potassium 4.3 mmol/L (3.5-5.1); Sodium 141 mmol/L (136-145); Total Bilirubin 0.4 mg/dL (0.15-1.2); Total Protein 6.5 g/dL (6.6-8.7)
[2024-06-06] MEDS: sodium bicarbonate 50 MEQ in sodium chloride 0.45% 1,000 ML 125 MEQ IV (08:37)
[2024-06-06 11:08] LABS: ABG PCO2 31.4 mmHg (35-45); Alveolar-Arterial Oxygen Gradi 3.6 mmHg (5-10); Arterial Blood Gas Hematocrit 35.6 % (37-47); Base Excess ABG -4.7 mmol/L (-2.0-2.0); Blood Gas Allen Test Pos; Blood Gas Operator Identificat CAK; Blood Gas Sample Site Radial, left; Blood Gas Sample Type Arterial; Carboxyhemoglobin 1.2 %THgb (0.4-20.1); HCO3 ABG 19.3 mmol/L (22-26); HGB O2 Sat 96.3 % (95-100); Ionized Calcium Level - ABG 1.3 mmol/L (1.1-1.4); Methemoglobin 0.5 % (0.4-1.5); Oxygen Device ROOM AIR; Oxygen Saturation ABG 97.9; PO2 ABG 82.6 mmHg (80.0-100.0); PO2 FiO2 Ratio Arterial Blood 393; Potassium Level - ABG 3.5 mmol/L (3.5-5.0); Total Hemoglobin 11.6 g/dL (12-16)
[2024-06-06 11:45] LABS: Estmated Average Glucose 97
--- NOTE | 2024-06-06 11:47 | PC.CHAP ---
Pastoral Care Encounter/Spiritual Assessment Type of Contact [x] Declined field technical assistant visit [] Patient/Family/Request visit [] Outpatient visit [] Follow-up visit [] Physician referral [] Code/Alert [] Routine visit [] Staff referral [] Actively dying [] Patient sleeping [] Family support [] [] Out of room [] Palliative care [] [] Receiving care in room [] Pre-surgical visit [] Trauma [] Long length of stay [] ICU visit [] Other: Relational/Emotional Strength [] Patient feels connected with others/family/visitors/staff [] Distress [] Loneliness/isolation [] Abandonment Spirituality of Patient [] Person of [place] [] Attends [employer] of their [place] [] Believes in Prayer [] Reads Bible or Islam materials [x] There are Spiritual issues to be addressed Bus Attendant Interventions [] Prayer [] Active listening [] Non-anxious presence [] Spiritual/emotional support [] Crisis/trauma care [] Spiritual counseling [] Bereavement support [] Provided bereavement packet [] Provided Bible/devotional materials [] Provided toy/stuffed animal, coloring book to patient or family member [] Provided Communion [] Anointing/[place] [] Salvation [] Completed spiritual assessment [] Other: Impact on Illness or Injury [] Angry [] Fearful [] Anxious [] Often cries [] Exhaustion [] Unable to work [] Unable to attend christianity [] Unable to walk/stand [] Unable to read [] Unable to drive [] Unable to eat/drink [] Unable to sleep [] Unable to be with family [] Patient intubated [] Other: Summary Time spent with patient
[2024-06-06] MEDS: sodium chloride 0.9% 1,000 ML 75 ML IV (13:28)
[2024-06-06] MEDS: pantoprazole 40 mg SDV IVP (13:30)
--- NOTE | 2024-06-06 15:05 | P.PN_ITS ---
Subjective 2 Subjective: Admitted overnight. Patient denies any abdominal pain. Denies any vomiting but still complaining of heartburn and nausea. Heartburn getting worse on swallowing. Denies any diarrhea. Vitals/I&O/Wt Last Vital Signs Temp 98.4 F 06/06/24 11:28 Pulse 68 06/06/24 11:28 Resp 16 06/06/24 11:28 BP 101/62 06/06/24 11:28 Pulse Ox 98 06/06/24 11:56 O2 Del Method Room Air 06/06/24 11:56 06/06/24 06/06/24 06/06/24 06:59 14:59 22:59 Intake Total 1999 1410 / 1410 Balance 1999 1410 / 1410 Weight last 48 hrs Weight 58.151 kg Weight 56.744 kg Weight 54.431 kg Physical Exam 2 Const: COMMON NORMALS: no acute distress and patient oriented x3 HENMT: COMMON NORMALS: normocephalic HEAD & SCALP: normocephalic Neck/C-Spine: COMMON NORMALS: no JVD Resp: COMMON NORMALS: normal respiratory effort, No retractions, No use of accessory muscles and clear to auscultation bilaterally AUSCULTATION: clear to auscultation bilaterally Cardio: COMMON NORMALS: no JVD, regular rate, regular rhythm, S1 normal heart sound present and S2 normal heart sound present RATE: regular rate RHYTHM: regular rhythm HEART SOUNDS: S1 normal heart sound present and S2 normal heart sound present GI: COMMON NORMALS: Normal to inspection, nondistended, normoactive bowel sounds present, Soft to palpation and non-tender PALPATION: Yes Soft to palpation Extremity: COMMON NORMALS: no pedal edema Neuro: COMMON NORMALS: patient oriented x3, CN's II-XII intact bilaterally and moves all extremities Psych: COMMON NORMALS: mental status grossly normal Data 06/06/24 04:23 06/06/24 04:23 Micro: Microbiology 06/05/24 22:02 Blood Culture - Preliminary Blood SPECIMEN COLLECTED 06/05/24 21:58 Blood Culture - Preliminary Blood SPECIMEN COLLECTED A&P Assessment and plan (1) Increased anion gap metabolic acidosis: (2) Cannabis hyperemesis syndrome concurrent with and due to cannabis abuse: (3) UTI (urinary tract infection): (4) DEENA (acute kidney injury): Plan Intractable nausea and vomiting: Most likely in setting of gastritis due to hyperemesis gravidarum given patient recent along with possible marijuana hyperemesis syndrome. No concern for pancreatitis. Titis Protonix twice daily, Zofran as needed. Start on clear liquid diet. Discussed with patient regarding multiple small meals. High anion gap metabolic acidosis: Resolving. Most likely in setting of starvation ketosis due to extensive nausea and vomiting. Euglycemic DKA less likely. Check ABG. If ABG shows normal pH we will switch to normal saline and stop bicarb drip. Monitor BMP in afternoon. UTI: Less likely. For now continue to follow-up with blood cultures. Continue IV ceftriaxone. If remains afebrile for next 24 hours will DC antibiotics. : Discussed with patient given the medications she should be pumping and dumping her breast milk and using formula for her kid. She verbalized understanding. Full code Protonix for PUD prophylaxis Start on heparin 5000 every 12 hourly for DVT prophylaxis. Clear liquid diet. PDMP PDMP Reviewed: Not Reviewed Attestations 2 Medical Necessity Statement*: Requires further hospitalization for management of DEENA, high anion gap metabolic acidosis, starvation ketosis in setting of intractable nausea and vomiting and young female. Diagnoses Increased anion gap metabolic acidosis E87.29 Cannabis hyperemesis syndrome concurrent with and due to cannabis abuse F12.188 UTI (urinary tract infection) N39.0 DEENA (acute kidney injury) N17.9
[2024-06-06 15:26] LABS: Anion Gap 17.3 (5-19); Blood Urea Nitrogen 17 mg/dL (6-20); Calcium 8.6 mg/dL (8.5-10.5); Carbon Dioxide 20 mmol/L (22-29); Chloride 108 mmol/L (98-107); Creatinine Clr Calc Pharmacy 80.2583; Glomerular Filtration Rate 80.3 mL/min (90-130); Glucose 82 mg/dL (65-115); Osmolality Calculated 295 mOsm/kg (285-295); Potassium 3.3 mmol/L (3.5-5.1); Sodium 142 mmol/L (136-145)
[2024-06-06] MEDS: lidocaine 1% 5 ML in potassium chloride premix 100 ML 26.25 ML IV ×2 (16:55→21:36)
[2024-06-06] MEDS: docusate sodium 100 mg Capsule PO (16:56)
[2024-06-06] MEDS: acetaminophen 325 mg Tablet 650 MG PO (16:56)
[2024-06-06] MEDS: cefTRIAXone 1,000 mg SDV 1000 MG IVP (20:33)
[2024-06-06] MEDS: ondansetron 2 mg/ML SDV 2 mL 4 MG IVP (20:33)
[2024-06-07 04:00] VITALS: BP 115/72; PULSE 59; RESP 18; TEMP 36.8; O2SAT 98
[2024-06-07] MEDS: sodium chloride 0.9% 1,000 ML 75 ML IV (04:29)
[2024-06-07 04:36] LABS: Basophils # 0.1 10^3/uL (0.0-0.1); Basophils % 0.7 %; Eosinophils # 0.1 10^3/uL (0.0-0.8); Eosinophils % 1.3 %; Hematocrit 33.5 % (36-47); Lymphocytes # 2.6 10^3/uL (0.8-4.8); Lymphocytes % 30.1 %; Mean Corpuscular HGB Conc 32.5 g/dL (30-55); Mean Corpuscular Volume 95.2 fl (85-98); Mean Platelet Volume 10.5 fL (7.4-10.4); Monocytes # 0.8 10^3/uL (0.2-0.9); Monocytes % 9.5 %; Neutrophils # 4.94 10^3/uL (1.8-7.7); Nucleated Red Blood Cells % 0 %; Platelet Count 205 10^3/cmm (157-399); Red Blood Count 3.52 10^6/uL (3.85-5.65); Red Cell Distribution Width 12.6 % (12.1-15.1); White Blood Count 8.51 10^3/uL (3.29-11.43)
[2024-06-07] MEDS: pantoprazole 40 mg SDV IVP (04:40)
[2024-06-07] MEDS: metoclopramide 5 mg/mL SDV 2 mL IVP (04:43)
[2024-06-07 04:57] LABS: Alanine Aminotransferase 9 U/L (0-33); Albumin Level 3.8 g/dL (3.5-5.2); Alkaline Phosphatase 67 U/L (35-105); Anion Gap 16.5 (5-19); Aspartate Amino Transferase 13 U/L (0-32); Blood Urea Nitrogen 12 mg/dL (6-20); Calcium 8.7 mg/dL (8.5-10.5); Carbon Dioxide 21 mmol/L (22-29); Chloride 109 mmol/L (98-107); Creatinine Clr Calc Pharmacy 107.0111; Globulin 2.1 g/dL (1.3-4.6); Glomerular Filtration Rate 111.9 mL/min (90-130); Glucose 73 mg/dL (65-115); Osmolality Calculated 292 mOsm/kg (285-295); Potassium 4.5 mmol/L (3.5-5.1); Sodium 142 mmol/L (136-145); Total Bilirubin 0.5 mg/dL (0.15-1.2); Total Protein 5.9 g/dL (6.6-8.7)
[2024-06-07 05:02] LABS: Chol HDL Ratio 2.19 mg/dL (0.0-4.40); Cholesterol 136 mg/dL (0-200); HDL Cholesterol 62 mg/dL (60-100); LDL Cholesterol Calculated 54 mg/dL (50-129); LDL HDL Ratio 0.87 RATIO (0.00-3.22); Magnesium 1.8 mg/dL (1.7-2.3); Phosphorus 1.8 mg/dL (2.5-4.5); Triglycerides 99 mg/dL (0-150)
[2024-06-07 07:14] VITALS: BP 125/75; PULSE 53; RESP 16; TEMP 36.9; O2SAT 97
[2024-06-07] MEDS: docusate sodium 100 mg Capsule PO (08:46)
[2024-06-07] MEDS: ondansetron 2 mg/ML SDV 2 mL 4 MG IVP (09:48)
[2024-06-07] MEDS: acetaminophen 325 mg Tablet 650 MG PO (10:52)
--- NOTE | 2024-06-07 10:56 | PM.DCS ---
Discharge Providers Date of Admission: 06/05/24 21:49 Date of Discharge: June 07, 2024 Attending Provider at Admission: Markell Vallejo MD Attending Provider at Discharge: Germán Collins MD Diagnoses at Discharge Discharge Diagnosis (1) Increased anion gap metabolic acidosis: Status: Acute (2) Cannabis hyperemesis syndrome concurrent with and due to cannabis abuse: Status: Acute (3) UTI (urinary tract infection): Status: Acute (4) DEENA (acute kidney injury): Status: Acute Reason for Visit Reason for Visit: n/v couple days Brief History: History as per HPI: Jaylyn Lo is a 39 year old female G3, P3, 5 months , history of gestational diabetes, no history of hypertension, recent history of marijuana use, who presents [facility] for intractable nausea, vomiting over the last few days. Currently patient is alert oriented x 3, following all commands, she denies any fevers, no chills, no lightheadedness, dizziness, does report a headache, does report flank pain, does report dizziness, no blurry vision, denies a history of hypertension, no history of preeclampsia or eclampsia, no history of diabetes but did have gestational diabetes, she is breast-feeding, no sick contacts, recent travel. Hospital Course Hospital Course Patient was admitted to the hospital for evaluation and management of high anion gap metabolic acidosis and starvation ketosis due to extensive nausea and vomiting. She was started on aggressive IV hydration after which her renal functions and acidosis resolved. Gradually patient was started on liquid diet which she has been able to tolerate with Protonix and Zofran as needed. She has been discharged in hemodynamically stable condition on liquid diet going forward with advised to take multiple small meals and advance very gradually. She is advised to take Protonix twice daily, Zofran as needed. She is also being discharged on Maalox as needed. Patient is advised to pump and dump breastmilk while she is on medications or until it has been cleared up by her child's semiconductor wafers saw operator. Physical Exam Const: COMMON NORMALS: no acute distress and patient oriented x3 HENMT: COMMON NORMALS: normocephalic HEAD & SCALP: normocephalic Neck/C-Spine: COMMON NORMALS: no JVD Resp: COMMON NORMALS: normal respiratory effort, No retractions, No use of accessory muscles and clear to auscultation bilaterally AUSCULTATION: clear to auscultation bilaterally Cardio: COMMON NORMALS: no JVD, regular rate, regular rhythm, S1 normal heart sound present and S2 normal heart sound present RATE: regular rate RHYTHM: regular rhythm HEART SOUNDS: S1 normal heart sound present and S2 normal heart sound present GI: COMMON NORMALS: Normal to inspection, nondistended, normoactive bowel sounds present, Soft to palpation and non-tender PALPATION: Yes Soft to palpation Extremity: COMMON NORMALS: no pedal edema Neuro: COMMON NORMALS: patient oriented x3, CN's II-XII intact bilaterally and moves all extremities Psych: COMMON NORMALS: mental status grossly normal Discharge Data Studies Completed and Pending Completed Studies During Hospitalization Category Date Time Status CT abdomen pelvis w con* [id number] Stat Cat Scan 06/05/24 19:21 Completed Pending at discharge Category Date Time Status Blood Culture Routine Lab 06/05/24 22:02 Results Magnesium AM LABS Lab 06/08/24 04:00 Ordered Magnesium AM LABS Lab 06/09/24 04:00 Ordered Phosphorus AM LABS Lab 06/08/24 04:00 Ordered Phosphorus AM LABS Lab 06/09/24 04:00 Ordered Radiology Impressions Abdomen/Pelvis CT 06/05/24 19:21 IMPRESSION: 1. Tiny 2 mm nonobstructing left renal stone. 2. Short segment mildly prominent fluid-filled small bowel loop in the central abdomen which may be transient or could represent mild focal ileus. Remaining small and large bowel loops are normal in caliber and unremarkable. 3. No evidence for acute appendicitis. Microbiology 06/05/24 21:58 Blood Blood Culture - Preliminary NEGATIVE TO DATE 06/05/24 22:02 Blood Blood Culture - Preliminary NEGATIVE TO DATE Laboratory Results WBC 8.51 10^3/uL (3.29-11.43) 06/07/24 04:27 RBC 3.52 10^6/uL (3.85-5.65) L 06/07/24 04:27 Hgb 10.90 g/dL (11.27-16.99) L 06/07/24 04:27 Hct 33.5 % (36-47) L 06/07/24 04:27 MCV 95.2 fl (85-98) 06/07/24 04:27 MCH 31.0 pg (27-33) 06/07/24 04:27 MCHC 32.5 g/dL (30-55) 06/07/24 04: RDW 12.6 % (12.1-15.1) 06/07/24 04:27 Plt Count 205 10^3/cmm (157-399) 06/07/24 04:27 MPV 10.5 fL (7.4-10.4) H 06/07/24 04:27 Neut % (Auto) 58.0 % 06/07/24 04:27 Lymph % (Auto) 30.1 % 06/07/24 04:27 [place] % (Auto) 9.5 % 06/07/24 04:27 Eos % (Auto) 1.3 % 06/07/24 04:27 Baso % (Auto) 0.7 % 06/07/24 04:27 Neut # (Auto) 4.94 10^3/uL (1.8-7.7) 06/07/24 04:27 Lymph # (Auto) 2.6 10^3/uL (0.8-4.8) 06/07/24 04:27 [place] # (Auto) 0.8 10^3/uL (0.2-0.9) 06/07/24 04:27 Eos # (Auto) 0.1 10^3/uL (0.0-0.8) 06/07/24 04:27 Baso # (Auto) 0.1 10^3/uL (0.0-0.1) 06/07/24 04:27 Nucleated RBC % (auto) 0 % 06/07/24 04:27 Nucleated RBCs # 0.0 /100WBC 06/07/24 04:27 Specimen Type Arterial 06/06/24 10:56 Sample Site Radial, left 06/06/24 10:56 ABG pH 7.40 (7.35-7.45) 06/06/24 10:56 ABG pCO2 31.4 mmHg (35-45) L 06/06/24 10:56 ABG pO2 82.6 mmHg (80.0-100.0) 06/06/24 10:56 ABG PO2/FiO2 Ratio 393 06/06/24 10:56 ABG HCO3 19.3 mmol/L (22-26) L 06/06/24 10:56 ABG O2 Saturation 97.9 06/06/24 10:56 ABG Base Excess -4.7 mmol/L (-2.0-2.0) L 06/06/24 10:56 Vu Test Pos 06/06/24 10:56 A-a O2 Gradient 3.6 mmHg (5-10) L 06/06/24 10:56 Hematocrit 35.6 % (37-47) L 06/06/24 10:56 Hgb O2 Saturation 96.3 % (95-100) 06/06/24 10:56 Carboxyhemoglobin 1.2 %THgb (0.4-20.1) 06/06/24 10:56 Methemoglobin 0.5 % (0.4-1.5) 06/06/24 10:56 Total Hemoglobin 11.6 g/dL (12-16) L 06/06/24 10:56 Sodium 143.0 mmol/L (131-143) 06/06/24 10:56 Potassium 3.5 mmol/L (3.5-5.0) 06/06/24 10:56 Glucose 83.0 mg/dL (70-115) 06/06/24 10:56 Ionized Calcium 1.3 mmol/L (1.1-1.4) 06/06/24 10:56 O2 Delivery Device Room air 06/06/24 10:56 FiO2 21.0 % 06/06/24 10:56 Deep Fat Cook Fry ID Cak 06/06/24 10:56 Sodium 142 mmol/L (136-145) 06/07/24 04:27 Potassium 4.5 mmol/L (3.5-5.1) 06/07/24 04:27 Chloride 109 mmol/L (98-107) H 06/07/24 04:27 Carbon Dioxide 21 mmol/L (22-29) L 06/07/24 04:27 Anion Gap 16.5 (5-19) 06/07/24 04:27 BUN 12 mg/dL (6-20) 06/07/24 04:27 Creatinine 0.6 mg/dL (0.5-0.9) 06/07/24 04:27 GFR Calculation 111.9 mL/min (90-130) 06/07/24 04:27 Glucose 73 mg/dL (65-115) 06/07/24 04:27 Estimat Average Glucose 97 06/06/24 04:23 Hemoglobin A1c 5.0 % (4.0-6.0) 06/06/24 04:23 Calculated Osmolality 292 mOsm/kg (285-295) 06/07/24 04:27 Lactic Acid 1.8 mmol/L (0.5-2.2) 06/05/24 18:48 Calcium 8.7 mg/dL (8.5-10.5) 06/07/24 04:27 Phosphorus 1.8 mg/dL (2.5-4.5) L 06/07/24 04:27 Magnesium 1.8 mg/dL (1.7-2.3) 06/07/24 04:27 Total Bilirubin 0.5 mg/dL (0.15-1.2) 06/07/24 04:27 AST 13 U/L (0-32) 06/07/24 04:27 ALT 9 U/L (0-33) 06/07/24 04:27 Alkaline Phosphatase 67 U/L (35-105) 06/07/24 04:27 Creatine Kinase 57 U/L (26-192) 06/05/24 18:58 C-Reactive Protein 5.5 mg/L (0.0-4.9) H 06/05/24 18:48 Total Protein 5.9 g/dL (6.6-8.7) L 06/07/24 04:27 Albumin 3.8 g/dL (3.5-5.2) 06/07/24 04:27 Globulin 2.1 g/dL (1.3-4.6) 06/07/24 04:27 Triglycerides 99 mg/dL (0-150) 06/07/24 04:27 Cholesterol 136 mg/dL (0-200) 06/07/24 04:27 LDL Cholesterol, Calc 54 mg/dL (50-129) 06/07/24 04:27 HDL Cholesterol 62 mg/dL (60-100) 06/07/24 04:27 LDL/HDL Ratio 0.87 RATIO (0.00-3.22) 06/07/24 04:27 Cholesterol/HDL Ratio 2.19 mg/dL (0.0-4.40) 06/07/24 04:27 Lipase 67 U/L (13-60) H 06/05/24 18:48 Procalcitonin 0.13 ng/mL (0-0.5) 06/05/24 18:48 TSH 0.25 uIU/mL (0.27-4.20) L 06/05/24 18:48 Free T4 1.58 ng/dL (0.82-1.77) 06/05/24 18:58 Free T3 2.1 PG/ML (2.0-4.4) 06/05/24 18:58 HCG, Qual Negative (Negative) 06/05/24 18:48 Urine Color Yellow (Yellow) 06/05/24 18:45 Urine Appearance Cloudy (CLEAR) A 06/05/24 18:45 Urine pH 5.5 (5-7) 06/05/24 18:45 Ur Specific [place] 1.023 (1.005-1.030) 06/05/24 18:45 Urine Protein 3+ (Negative) A 06/05/24 18:45 Urine Glucose (UA) Negative (Normal) 06/05/24 18:45 Urine Ketones 3+ (Negative) H 06/05/24 18:45 Urine Blood 1+ (Negative) A 06/05/24 18:45 Urine Nitrate Negative (Negative) 06/05/24 18:45 Urine Bilirubin Negative (Negative) 06/05/24 18:45 Urine Urobilinogen 1.0 mg/dL (Negative) 06/05/24 18:45 Ur Leukocyte Esterase Negative (Negative) 06/05/24 18:45 Urine RBC 0-2 /hpf (0-2) 06/05/24 18:45 Urine WBC 21-50 /hpf (0-5) H 06/05/24 18:45 Ur Squamous Epith Cells 11-20 /hpf (0-5) H 06/05/24 18:45 Amorphous Sediment Not Reportable 06/05/24 18:45 Urine Bacteria None seen /hpf (NONE) 06/05/24 18:45 Hyaline Casts 44.25 /lpf 06/05/24 18:45 Ur Random Microalbumin 80 ug/dL (0-20) H 06/05/24 18:45 U Random Total Protein 150 mg/dL 06/05/24 18:45 Urine Creatinine 159 mg/dL (28-217) 06/05/24 18:45 Microalb/Creat Ratio 503 mg/dL (0-20) H 06/05/24 18:45 Urine Opiates Screen Negative ng/mL (Negative) 06/05/24 18:45 Ur Barbiturates Screen Negative ng/mL (Negative) 06/05/24 18:45 Ur Phencyclidine Scrn Negative ng/mL (Negative) 06/05/24 18:45 Ur Amphetamines Screen Negative ng/mL (Negative) 06/05/24 18:45 U Benzodiazepines Scrn Negative ng/mL (Negative) 06/05/24 18:45 Urine Cocaine Screen Negative ng/mL (Negative) 06/05/24 18:45 U Marijuana (THC) Screen Positive ng/mL (Negative) H 06/05/24 18:45 Serum Ketones Positive (Negative) H 06/05/24 18:48 Influenza A (PCR) Negative (Negative) 06/05/24 22:59 Influenza Type B (PCR) Negative (Negative) 06/05/24 22:59 RSV (PCR) Negative (Negative) 06/05/24 22:59 SARS-CoV-2 (PCR) Negative (Negative) 06/05/24 22:59 Vitals Last Vital Signs Temp 98.5 F 06/07/24 07:14 Pulse 53 L 06/07/24 07:14 Resp 16 06/07/24 07:14 BP 125/75 06/07/24 07:14 Pulse Ox 97 06/07/24 07:14 O2 Del Method Room Air 06/07/24 07:14 Discharge Plan Discharge Patient Disposition: Home Condition: Stable Prescriptions: New pantoprazole [Protonix] 40 mg tablet,delayed release (DR/EC) 40 mg PO QAM 28 Days Qty: 35 0RF Rx Instructions: Twice daily for next 1 weeks followed by once daily ondansetron 4 mg tablet,disintegrating 4 mg PO Q8H PRN (Reason: nausea and vomiting) 4 Days Qty: 20 0RF alum-mag hydroxide-simeth [Mag-Al Plus] 200-200-20 mg/5 mL Suspension 15 ml PO Q4H PRN (Reason: Indigestion) Qty: 3000 0RF Continued Acidophilus Probiotic Complex 250 million cell capsule 1 cap PO DAILY digestive enzymes Capsule 1 cap PO DAILY Rx Instructions: administer with food; swallow whole; do not crush/chew/dissolve/break/cut Discharge Orders: Discharge Order (Routine); Ordered 06/07/24 Ordered By: Germán Collins Discharge Diet: Advance as tolerated Discharge Activity: Resume usual activity and Increase activity as tolerated Patient Instructions: Ondansetron (By mouth) (Zofran, Zofran ODT, Zuplenz), Pantoprazole (By mouth) (Protonix), Acute Kidney Injury (DC), Urinary Tract Infection in Women (DC), Cannabis Use Disorder (DC), Opioid Safety, Pain Management Activity Restrictions/Additional Instructions: Clear liquid diet for next 3-4 days.Advance as tolerated. Please take multiple small meals. Maintain oral hydration with atleast 50 oz of liquid intake While on protonix continue to pump and dump breast milk. Do not start breast feeding till okayed from your TRACK BROOM OPERATOR Please call both your TRACK BROOM OPERATOR and your PCP tomorrow to set up follow-up appointments. Discharge Attestations Time Spent in Discharge Care*: greater than 30 min Specific Discharge Activities: educating patient, discussing with pcp/other providers, discussing with correctional casework specialist/social workers/dc planners, documenting/other paperwork and evaluating patient/reviewing data Status at Discharge: Cognitive status at discharge: cognitively intact, Behavioral status at discharge: cooperative, Functional status at discharge: independent ambulation, Overall status at discharge: patient is progressing back to baseline Quality Metrics Clinical Quality Measures [ No reported AMI, CVA or VTE this stay] Coding Level of Care Code 90118 Total time (in minutes) for Discharge: 60 Diagnoses Increased anion gap metabolic acidosis E87.29 Cannabis hyperemesis syndrome concurrent with and due to cannabis abuse F12.188 UTI (urinary tract infection) N39.0 DEENA (acute kidney injury) N17.9
[2024-06-07 11:45] VITALS: BP 113/70; PULSE 56; RESP 17; TEMP 36.8; O2SAT 96
[2024-06-07] MEDS: lidocaine 2% viscous 15 ML, aluminum-mag hydrox-simethicon 30 ML, sucralfate oral liq 1 GM PO (12:00)
[2024-06-07 13:37] VITALS: BP 113/70; PULSE 56; RESP 17; TEMP 36.8; O2SAT 96
== END 2024-06-07 13:38 | disposition home or self-care (01) | DRG 690 ==
LOC: ER 20:51 → MEDSURG 23:04
PROVIDERS: Emergency Medicine; Admitting Provider Family Medicine; Emergency Provider Emergency Medicine; Visit Provider Student in an Organized Health Care Education/Training Program
DX: N39.0 Urinary tract infection, site not specified (principal); E87.20 Acidosis, unspecified; N17.9 Acute kidney failure, unspecified; R11.2 Nausea with vomiting, unspecified; F12.10 Cannabis abuse, uncomplicated; F90.9 Attention-deficit hyperactivity disorder, unspecified type; E86.0 Dehydration
CPT/HCPCS: 36415; 36600; 74177; 80048; 80051; 80053; 80061; 80306; 81001; 82009; 82044; 82330; 82550; 82805; 83036; 83605; 83690; 83735; 84100; 84145; 84156; 84439; 84443; 84481; 84703; 85025; 86140; 87040; 87637; 93005; 94664; 96361; 96374; 96375; 96376; 99285; J0696; J1171; J1200; J1885; J2360; J2405; J2470; J2765; J3480; J3490; J7030; J9999